=== PATIENT | female | born 1975 ===

== ENCOUNTER 2025-06-06 13:00 | Outpatient (AMB) | payer BC, SELFPAY ==
[2025-06-06 13:08] VITALS: BP 132/76; PULSE 87; TEMP 36.8; O2SAT 93; BMI 47.6
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
--- OUTSIDE RECORDS SUMMARY | 2025-06-06 13:36 | XMS_ITS | Patient Health Record ---
[facility] Address [address] [place] [address] Care Team Providers Care Tire Inspector Name Role Phone Jessica FREITAS, [facility] Primary Care Provider Unav Theresa Hi Unavailable [phone] Reason For Referral No Information Medications Medication SIG (Take, Route, Frequency, Duration) Notes Start Date End Date Status Etodolac 400 MG 1 tablet with food Orally Twice a day; Duration: 30 day(s) Active Atorvastatin Calcium 10 MG 1 tablet Orally Once a day; Duration: 30 day(s) Active Januvia 100 MG 1 tablet Orally Once a day; Duration: 30 day(s) Active Lisinopril Active metFORMIN HCl ER 500 MG Orally Active Amoxicillin Not-Taki ng Keflex 500 MG 1 capsule Orally tez ry 12 hrs; Duration: 5 days 12/06/2019 Not-Taking predniSONE Not-Takin g Keflex 500 500 MG 1 capsule Orally tez ry 12 hrs; Duration: 7 days 02/01/2020 Not-Taking Immunizations Vaccine Route Administration Date Status Comme nts Influenza Unknown 09/26/2019 Administered Social History Tobacco Use: Social History Observation Description Date Details (start date - stop date) Never Smoker NA - NA Tobacco Use/Smoking Question Answer Notes Are you a: nonsmoker Alcohol Screen Question Answer Notes Did you have a drink containing alcohol in the p ast year? No Points 0 Interpretation Negative Tobacco use other than smoking: Question Answer Notes Are you an other tobacco user? No Problems Problem Type SNOMED Code ICD Code Onset Dates Problem Status W/U Status Risk Notes Problem Type II diabetes mellitus without complication ([id number]) Type 2 diabetes mellitus without complication, without long-term current use of insulin (E11.9) Active confirmed Plan Of Treatment No Information Insurance Providers Payer Name Payer Address Payer Phone Subscriber Number Group Number Insured Name Patient Relationship to Insured Coverage Start Date Coverage End Date [facility] All Others [address] [place] [address] [id number] Veronica Burger Self - patient is the insured Medical (General) History Medical History History ICD Code Arthritis Diabetes mellitus Chicken pox Surgical History Surgery Date(Month/Year) 11/27/2011
--- OUTSIDE RECORDS SUMMARY | 2025-06-06 13:36 | XMS_ITS | Clinical Summary ---
Author Organization [facility] [address] [place] [address] [place] [phone] Phone Care Team Providers Care Supervisor Electronics Processing Name Role Phone Michelle Lopez MD Primary Care Provider [phone] Allergies Active Allergy Reactions Criticality Noted Date Comments Glipizide 05/06/2017 Other Reaction(s): Rash/Dermatitis Medications nystatin (MYCOSTATIN) 100,000 unit/gram powder Apply to affected area 3 times a day until symptoms resolve 024 Active blood sugar diagnostic (Accu-Chek Santa Plus test strp) test strip USE TO CHECK BLOOD SUGARS TWICE DAILY 024 Active dulaglutide (Trulicity) 4.5 mg/0.5 mL pen injector injection Inject 4.5 mg into the skin once a week. 024 Active ACCU-CHEK SOFTCLIX LANCETS MISC USE TO TEST BLOOD SUGARS TWICE DAILY 019 Active blood-glucose meter misc Use to test blood sugars twice daily 019 Active metFORMIN XR (GLUCOPHAGE-XR) 500 mg 24 hr tabletIndication s:Type 2 diabetes mellitus without complications (CMS/HCC V24, CMS/HCC V28) TAKE 2 TABLETS BY MOUTH TWICE A DAY 360 tablet 1 024 Active furosemide (LASIX) 20 mg tabletIndication s:Type 2 diabetes mellitus without complications (CMS/HCC V24, CMS/HCC V28) TAKE 1 TABLET BY MOUTH EVERY DAY 90 tablet 025 Active losartan (COZAAR) 25 mg tablet TAKE 2 TABLETS BY MOUTH EVERY DAY 180 tablet 025 Active empagliflozin (Jardiance) 25 mg tablet Take 1 tablet once daily 30 tablet 5 025 Active atorvastatin (LIPITOR) 10 mg tablet TAKE 1 TABLET BY MOUTH EVERY DAY 90 tablet 1 025 Active albuterol HFA (PROAIR HFA ; PROVENTIL HFA ; VENTOLIN HFA) 90 mcg/actuation inhaler Inhale 2 puffs by mouth every 6 (six) hours if needed for wheezing (presistent cough). 6.7 g 025 Active fexofenadine (GUI) 180 mg tablet Take 1 tablet (180 mg total) by mouth 1 (one) time each day if needed (allergies). 90 tablet 1 025 Active fluticasone propionate (FLONASE) 50 mcg/actuation nasal spray Administer 2 sprays into each nostril 1 (one) time each day. Shake gently. Before first use, prime pump. After use, clean tip and replace cap. 16 g 025 Active terconazole (TERAZOL 7) 0.4 % vaginal cream Insert 5g intravaginally daily for 7 days 024 2024 Discontinued(I neffective) loratadine (CLARITIN) 10 mg tablet Take 1 tablet (10 mg total) by mouth 1 (one) time each day. 024 2024 Discontinued fluticasone propionate (FLONASE) 50 mcg/actuation nasal spray 2 Sprays by Nasal route daily. 023 2024 Discontinued(R eorder) albuterol HFA (PROAIR HFA ; PROVENTIL HFA ; VENTOLIN HFA) 90 mcg/actuation inhaler TAKE 2 PUFFS BY MOUTH EVERY 4 HOURS NEEDED FOR DIFFICULTY BREATHING 021 2024 Discontinued(R eorder) atorvastatin (LIPITOR) 10 mg tablet TAKE 1 TABLET BY MOUTH EVERY DAY 90 tablet 1 024 2024 Discontinued Active Problems Problem Noted Date Diagnosed Date Morbid obesity ([facility] V24, [facility] V28) 2023 Hip pain 08/19/2022 Sciatica of right side 08/19/2022 DDD (degenerative disc disease), lumbar 11/13/20 20 Hyperlipidemia 11/13/2020 COVID-19 virus infection 07/22/2020 Pure hypercholesterolemia 04/27/2018 Type 2 diabetes mellitus wit hout complication, without long-term current use of insulin ([facility] V24, [facility] V28) 04/22/2017 Venous insufficiency 12/10/2010 Cellulitis of leg 07/23/2010 Allergic rhinitis 09/09/2006 Encounters Date Type Department Care Team Description 06/01/2025 Telephone Adult Medicine [address] [phone] Michelle Lopez MD 05/24/2025 10:30 AM EDT Office Visit Adult Medicine [address] [phone] Louise Lopez, CHELSIE Persistent cough (Primary Dx); Upper respiratory tract infection, unspecified type; Allergic rhinitis, unspecified seasonality, unspecified trigger 05/22/2025 Telephone Adult [address] [phone] Michelle Lopez MD Cough 04/11/2025 8:00 AM EDT Office Visit Endocrinology [address] [phone] Yumiko Ocasio PA Type 2 diabetes mellitus without complication, without long-term current use of insulin ([facility] V24, [facility] V28) (Primary Dx); Hyperlipidemia, unspecified hyperlipidemia type; Morbid obesity ([facility] V24, [facility] V28) from Last 3 Months Immunizations Name Administration Dates Next Due Influenza Quadravalent, MDCK , 0.5ml, preservative free (Flucelvax) 6mo and older 08/18/2023,08/13/2021,08/16/2019 Influenza Quadravalent, MDCK , 0.5ml, with preservative (Flucelvax) 6mo and older 08/29/2018 Influenza trivalent, 0.5mL, preservative free (Fluarix; FluLaval; Fluzone) ages 6mo and older (Afluria) 3 years and older 08/12/2022,08/26/2020 Influenza trivalent, with pr eservative (Fluzone; Afluria) 6mo and older 08/30/2013,10/27/2012,09/02/2011 Influenza, Unspecified 08/17/2024,08/12/2022, Moderna (age 6mo & older) Bi valent, COVID-19, 0.5 mL or 0.25 mL dosage 09/02/2022 Pneumococcal polysaccharide 23 valent (Pneumovax 23) 2yo and older 05/11/2019 Td Tetanus diptheria (Tdvax) 7yo and older 05/11 Tdap Tetanus diptheria acell ular pertussis (Boostrix; Adacel) 7yo and older 05/11/2019,09/11/2009 Surgical History Surgery Date Site/Laterality Comments TONSILLECTOMY PROCEDURE: HISTORICAL TONSILLECTOMY SECTION 11/27/11 PROCEDURE: HISTORICAL DELIVERY; COMMENT: Breech Medical History Medical History Date Comments Obesity, unspecified 01/05/2006 DX:Obesity, unspecified Backache, unspecified 01/05/2006 DX:Backach e, unspecified Allergic rhinitis, cause unspecified 09/09/2006 DX:Allergic rhinitis, cause unspecified Cellulitis of leg DX:Cellulitis of leg; COMMENT: 2009, reoccurring , referred to vascular Elevated blood sugar DX:Elevated blood sugar HTN (hypertension) DX:HTN (hyper tension) Venous insufficiency DX:Venous i nsufficiency; COMMENT: Dr. Jacome 2009 Type II or unspecified type diabetes mellitus with unspecified complication, not stated as uncontrolled DX:Type II or unspecified ty pe diabetes mellitus with unspecified complication, not stated as uncontrolled Family History Medical History Relation Name Comments Diabetes Father Blindness Maternal Grandfather Diabetes Maternal Grandfather Hyperlipidemia Mother Other: Autism Son Breast cancer Neg Hx Cataracts Neg Hx Colon cancer Neg Hx Glaucoma Neg Hx Macular degeneration Neg Hx Ovarian cancer Neg Hx Strabismus Neg Hx Relation Name Status Comments Brother 1 Alive Brother 2 Alive Father Alive Maternal Grandfather Mother Alive Son Social History Tobacco Use Types Packs/Day Years Used Date Smoking Tobacco: Never Passive Smoke Exposure: Never Smokeless Tobacco: Never Alcohol Use Standard Drinks/Week Comments No 0 (1 standard drink = 0.6 oz pur e alcohol) Comments No Sex and Gender Information Value Date Recorded Sex Assigned at Not on file Legal Sex Female 4:49 PM EST Gender Identity Not on file Sexual Orientation Not on file Obstetrics History Para Term AB IAB SAB Ectopic Multiple Livin g Live Births 1 11 30 1 Date Outcome GA Total Labor Labor/2nd/3rd Weight Sex Type Anes PTL Ina A1 A5 Name Clin Term Last Filed Vital Signs Vital Sign Reading Time Taken Comments Blood Pressure 122/62 05/24/2025 10:24 AM EDT Pulse 64 05/24/2025 10:24 AM EDT Temperature 36.6 C (97.8 F) 05/24/2025 10:24 AM EDT Respiratory Rate 18 05/24/2025 10:24 AM EDT Oxygen Saturation 95% 05/24/2025 10:24 AM EDT Inhaled Oxygen Concentration - - Weight 113 kg (250 lb) 05/24/2025 10:24 AM EDT Height 152.4 cm (5') 05/24/2025 10:24 AM EDT Body Mass Index 48.82 05/24/2025 10:24 AM EDT Plan of Treatment Upcoming Encounters Date Type Department Care Team (Late st Contact Info) Description 06/12/2025 4:15 PM EDT Office Visit Adult Medicine [place] - [address] [phone] Michelle Lopez MD [address] [place] [address] 10/24/2025 10:40 AM EST Office Visit Endocrinology - [address] [phone] Yumiko Ocasio PA [address] [place] [address] 03/05/2026 8:40 AM EDT Appointment Radiology Department - [address] [phone] Health Maintenance Due Date Last Done Comments Diabetes: Annual Retina Eye Exam 1984 Hepatitis B Vaccines (1 of 3 - 19+ 3-dose series) 1993 Pneumococcal Vaccine: 50+ Years (2 of 2 - PCV) 05/11/2020 05/11/2019 Cervical Cancer Screening: Pap Smear 06/01/2020 06/01/2017, 06/01/2017 Colorectal Cancer Screening: Colonoscopy 11/08/2022 Depression Screening 11/08/2022 Hepatitis C Screening 11/08/2022 Social Influencers of Health Screening 11/08/2022 Zoster Vaccines (1 of 2) 2024 Influenza Vaccine (#1) 2025 , 08/18/2023, 08/12/2022, Additional history exists Diabetes: Annual Urine Albumin-Creatinine Ratio (uACR) 08/02/2025 08/02/2024 Diabetes: Annual Foot Exam 08/23/2025 08/23/2024 Diabetes: Blood Sugar Control Test (HGBA1C) 10/05/2025 04/04/2025, 11/11/2024, 08/02/2024, Additional history exists Diabetes: Annual GFR (Glomerular Filtration Rate) 11/11/2025 11/11/2024, 01/13/2024 Breast Cancer Screening 03/01/2027 03/01/20 25, 12/22/2023, 12/16/2022, Additional history exists DTaP,Tdap,and Td Vaccines (4 - Td or Tdap) 05/11/2029 05/11/2019, 05/11/2019, 09/11/2009 Cholesterol Screening (Lipid Panel) 11/11/2029 11/11/2024 HIV Screening Completed 05/07/2011 COVID-19 Vaccine Completed 08/17/2024, 08/2023, 09/02/2022, Additional history exists HIB Vaccines Aged Out No longer eligi ble based on patient's age to complete this topic HPV Vaccines Aged Out No longer eligi ble based on patient's age to complete this topic Hepatitis A Vaccines Aged Out No long er eligible based on patient's age to complete this topic IPV Vaccines Aged Out No longer eligi ble based on patient's age to complete this topic MMR Vaccines Aged Out No longer eligi ble based on patient's age to complete this topic Meningococcal ACWY Vaccine Aged Out N o longer eligible based on patient's age to complete this topic Meningococcal B Vaccine Aged Out No l onger eligible based on patient's age to complete this topic RSV Immunization Patients Under 20 months Aged Out No longer eligible based on patient's age to complete this topic Varicella Vaccines Aged Out No longer eligible based on patient's age to complete this topic Procedures Procedure Name Priority Date/Time Associated Diagnosis Comments HEMOGLOBIN A1C Routine 04/04/2025 7:58 AM EDT Type 2 diabetes mellitus without complication, without long-term current use of insulin ([facility] V24, [facility] V28) MG MAMMO DIGITAL SCREENING W OMER BILAT Routine 03/01/2025 8:44 AM EDT Encounter for screening mammogram for breast cancer BASIC METABOLIC PANEL Routine 11/11/2024 9:49 AM EST Type 2 diabetes mellitus without complication, without long-term current use of insulin ([facility] V24, [facility] V28) Pure hypercholesterolemi a Morbid obesity with BMI of 50.0-59.9, adult ([facility] V24, [facility] V28) LIPID PANEL WITH REFLEX TO DIRECT LDL Routine 11/11/2024 9:49 AM EST Type 2 diabetes mellitus without complication, without long-term current use of insulin ([facility] V24, [facility] V28) Pure hypercholesterolemi a Morbid obesity with BMI of 50.0-59.9, adult ([facility] V24, [facility] V28) DIABETES FOOT EXAM Routine 08/23/2024 URINE ALBUMIN CREATININE RATIO Routine 08/02/2024 HPV Routine 06/01/2017 HIV SCREENING Routine 05/07/2011 from Last 3 Months or Most Recently Relevant to Health Maintenance Results * (ABNORMAL) Hemoglobin A1c (04/04/2025 7:58 AM EDT) Hemoglobin A1C 7.8(H) <6.5 % LAB CHEMISTRY METHOD 04/04/2025 11:11 AM EDT [facility] Mean Bld Glu Estim. 177 mg/dL LAB CHEMISTRY METHOD 04/04/2025 11:11 AM EDT [facility] Blood Venous blood specimen / Unknown Venipuncture / Unknown 04/04/2025 7:58 AM EDT 04/04/2025 7:58 AM EDT us Yumiko KIRBY LAB BLOOD ORDERABLES Final Resul t [facility] [address] [place] [address], [place] [phone] * MG Mammo Digital Screening w Omer bilat (03/01/2025 8:44 AM EDT) Anatomical Region Laterality Modality Breast Bilateral Mammography 03/01/2025 5:21 PM EDT Impressions 03/01/2025 5:22 PM EDT No mammographic evidence of malignancy. BREAST DENSITY: B - There are scattered areas of fibroglandular density. BI-RADS CATEGORY: 1 - NEGATIVE RECOMMENDATION: Screening bilateral mammogram is recommended in 1 year. MAMMO LOCATION: [facility], [address] [place] [address], [id number], . -------- FINAL REPORT -------- Dictated By: Margot Kimball Dictated Date: 03/01/2025 17:21 ET Assigned Physician: Margot Kimball Reviewed and Electronically Signed By: Margot Kimball Signed Date: 03/01/2025 17:22 ET Workstation ID: [id number] Transcribed By: Self Edit Transcribed Date: 03/01/2025 17:21 ET Narrative 03/01/2025 5:22 PM EDT EXAM: Screening Mammogram CLINICAL: 49 years old, Female, routine annual exam. COMPARISON: 12/22/2023 and 12/16/2022 TECHNIQUE: Bilateral MLO and CC views were obtained digitally with 3-D mammogram (digital breast tomosynthesis). Computer-aided detection was utilized in evaluation of this exam (CAD). FINDINGS: No new suspicious mass, architectural distortion, or suspicious calcifications. Procedure Note Margot Kimball MD - 03/01/2025 EXAM: Screening Mammogram CLINICAL: 49 years old, Female, routine annual exam. COMPARISON: 12/22/2023 and 12/16/2022 TECHNIQUE: Bilateral MLO and CC views were obtained digitally with 3-Dmammogram (digital breast tomosynthesis). Computer-aided detection wasutilized in evaluation of this exam (CAD). FINDINGS: No new suspicious mass, architectural distortion, or suspiciouscalcifications. IMPRESSION: No mammographic evidence of malignancy. BREAST DENSITY: B - There are scattered areas of fibroglandular density. BI-RADS CATEGORY: 1 - NEGATIVE RECOMMENDATION: Screening bilateral mammogram is recommended in 1 year. MAMMO LOCATION: [facility], [address] [place] [address], [phone], . -------- FINAL REPORT -------- Dictated By: Margot Kimball Dictated Date: 03/01/2025 17:21 ET Assigned Physician: Margot Kimball Reviewed and Electronically Signed By: Margot Kimball Signed Date: 03/01/2025 17:22 ET Workstation ID: [id number] Transcribed By: Self Edit Transcribed Date: 03/01/2025 17:21 ET Michelle Lopez MD IM BI PROCEDURES Final Result * (ABNORMAL) Lipid panel with reflex to direct LDL (11/11/2024 9:49 AM EST) Cholesterol 212(H) 0 - 200 mg/dL LAB CHEMISTRY METHOD 11/11/2024 1:49 PM EST [facility] Triglycerides 224(H) 0 - 150 mg/dL LAB CHEMISTRY METHOD 11/11/2024 1:49 PM EST [facility] HDL 51 >=40 mg/dL LAB CHEMISTRY METHOD 11/11/2024 1:49 PM EST [facility] LDL Calculated 116(H) 0 - 100 mg/dL LAB CHEMISTRY METHOD 11/11/2024 1:49 PM EST [facility] VLDL Cholesterol Stepan 44.8 mg/dL LAB CHEMISTRY METHOD 11/11/2024 1:49 PM [facility] Non HDL Chol. (LDL+VLDL) 161(H) <145 mg/dL LAB CHEMISTRY METHOD 11/11/2024 1:49 PM [facility] Chol/HDL Ratio 4.2 0.0 - 4.4 LAB CHEMISTRY METHOD 11/11/2024 1:49 PM [facility] Blood Venous blood specimen / Unknown Venipuncture / Unknown 11/11/2024 9:49 AM EST 11/11/2024 9:49 AM EST us Yumiko KIRBY LAB BLOOD ORDERABLES Final Resul t [facility] [address] [place] [address], [place] [phone] * (ABNORMAL) Basic metabolic panel (11/11/2024 9:49 AM EST) Sodium 139 133 - 145 mmol/L LAB CHEMISTRY METHOD 11/11/2024 1:49 PM [facility] Potassium 4.5 3.5 - 5.5 mmol/L LAB CHEMISTRY METHOD 11/11/2024 1:49 PM [facility] Chloride 104 96 - 110 mmol/L LAB CHEMISTRY METHOD 11/11/2024 1:49 PM [facility] CO2 23 21 - 32 mmol/L LAB CHEMISTRY METHOD 11/11/2024 1:49 PM [facility] Anion Gap 12(H) 3 - 11 LAB CHEMISTRY METHOD 11/11/2024 1:49 PM [facility] Glucose 126(H) 70 - 100 mg/dL LAB CHEMISTRY METHOD 11/11/2024 1:49 PM [facility] BUN 14 5 - 25 mg/dL LAB CHEMISTRY METHOD 11/11/2024 1:49 PM [facility] Creatinine 0.69 0.50 - 1.10 mg/dL LAB CHEMISTRY METHOD 11/11/2024 1:49 PM EST [facility] eGFR 106 >=60 mL/min/1. 73m2 LAB CHEMISTRY METHOD 11/11/2024 1:49 PM EST [facility] Comment:Calculation based on the Chronic Kidney Disease Epidemiology Collaboration (CKD-EPI) equation refit without adjustment for race. BUN/Creatinine Ratio 20.3 LAB CHEMISTRY METHOD 11/11/2024 1:49 PM EST [facility] Calcium 9.5 8.5 - 10.5 mg/dL LAB CHEMISTRY METHOD 11/11/2024 1:49 PM [facility] Blood Venous blood specimen / Unknown Venipuncture / Unknown 11/11/2024 9:49 AM EST 11/11/2024 9:49 AM EST Result [facility] Yumiko KIRBY LAB BLOOD ORDERABLES Final Resul t [facility] [address] [place] [address], [place] [phone] * Diabetes Foot Exam (08/23/2024) [facility] Diabetes: Annual Foot Exam abstracted Result [facility] Provider HEALTH MAINTENANCE Final Result * Urine Albumin Creatinine Ratio (08/02/2024) [facility] Urine Albumin Creatinine Ratio abstracted Result [facility] Provider HEALTH MAINTENANCE Final Result * Cervical Cancer Screening: HPV (06/01/2017) [facility] Cervical Cancer Screening: HPV abstracted, negative Result [facility] HEALTH MAINTENANCE Final Result * HIV Screening (05/07/2011) [facility] HIV Screening abstracted Result [facility] HEALTH MAINTENANCE Final Result from Last 3 Months or Most Recently Relevant to Health Maintenance Insurance [facility] Care Teams Supervisor Electronics Processing Relationship Specialty Start Date End Date Michelle Lopez MD [address] [place] [address] PCP - General Internal Medicine 02/09/16
== END 2025-06-06 14:24 | disposition home or self-care (01) ==
PROVIDERS: Visit Provider Physician Assistant
DX: L03.116 Cellulitis of left lower limb (principal)